=== PATIENT | male | born 1985 | race Caucasian/White ===

== ENCOUNTER → 2020-11-27 | Outpatient (CLI) | payer OTHER ==
[~2020-11-27] MED LIST: CYCL10TA9 PO; HYDR1TAB8 OP
--- NOTE | 2020-11-27 09:24 | Diagnostic Imaging Report ---
Indication: Shoulder pain FINDINGS: 3 view left shoulder demonstrates no fracture, dislocation or acute appearing articular incongruity. IMPRESSION: No acute appearing abnormality. Dictated by: Dictated on workstation # [id number]
== END ==
LOC: RAD 08:46
PROVIDERS: ATTEND Chiropractor
DX: M25.512 Pain in left shoulder (principal); M99.07 Segmental and somatic dysfunction of upper extremity
CPT/HCPCS: 73030